=== PATIENT | male | born 1950 | race Two or more races ===

== ENCOUNTER 2025-07-21 11:29 | Inpatient (IN) | payer OTHER ==
[~2025-07-21] VITALS: Ht 190.5 cm; Wt 86.2 kg
[2025-07-21] MEDS ORDERED: CANDESARTAN CIL16 MG PO (13:21)
[2025-07-21] MEDS ORDERED: HORIZANT300 MG PO (13:21)
[2025-07-21] MEDS ORDERED: AMLODIPINE-OLM1 EACH (13:23)
[2025-07-21] MEDS ORDERED: TAMSULOSIN HCL0.4 MG PO (13:23)
[2025-07-21] MEDS ORDERED: FARXIGA10 MG PO (13:23)
[2025-07-21] MEDS ORDERED: FENOFIBRATE48 MG (13:24)
[2025-07-21] MEDS ORDERED: ADULT LOW DOSE81 M1 PO (13:25)
[2025-07-21] MEDS ORDERED: PANTOPRAZOLE SO40 M2 PO (13:26)
--- NOTE | 2025-07-21 13:27 | NUR ---
PACIENTE ALERTA Y ORIENTADA X3 REFIERE DIFICULTAD PARA ORINAR. SE MIDE S/V Y SE UBICA PARA SER EVALUADO.
[2025-07-21] MEDS ORDERED: CEFTRIAXONE SODIUM 1,000 MG VIAL IM ONE (15:30)
[2025-07-21] MEDS ORDERED: ACETAMINOPHEN 500 MG GEL..CAP PO ONE (15:30)
[2025-07-21 16:39] LABS: BASO % 0.5 % (0.1-1.2); EOS # 0.46 (0.04-0.54); EOS % 4.4 % (0.7-7.0); LYMPH # 2.22 (1.18-3.74); LYMPH % 21.4 % (19.3-53.1); MEAN PLATELET VOLUME 11.40 fl (9.4-12.4); MONO # 0.93 (0.24-0.82); MONO % 9.0 % (4.7-12.5); NEUT # 6.70 (1.56-6.13); NEUT % 64.5 % (34.0-71.1); RED CELL DISTRIBUTION WIDTH 12.8 % (11.6-14.4)
[2025-07-21 17:10] LABS: URINE BILIRRUBIN Negative (NEGATIVE); URINE BLOOD Small; URINE COLOR Dark Yellow; URINE KETONE Trace (NEGATIVE); URINE LEUKOCYTE Small; URINE NITRATE Positive; URINE UROBILINOGEN 1.0 E.U./dl
[2025-07-21 17:14] LABS: URINE BACTERIA 858.9 uL (0.0-1933); URINE EPITHELIAL CELLS 14.4 uL (0.0-38.8); URINE RBC 55.2 uL (0.0-20.8); URINE WBC 219.5 uL (0.0-23.2)
[2025-07-21 17:18] LABS: ALT/SGPT 31.0 U/L (12-78); AST/SGOT 19.0 U/L (15-37); BILIRUBIN TOTAL 0.33 mg/dL (0.3-1.2); BUN CREA RATIO 20.0 (7.0-25.0); CREATININE SERUM 1.34 mg/dL (0.70-1.30); GFR 52.11; GLOBULINA 4.2 G/DL (2.4-3.5); GLUCOSE FASTING 101.0 mg/dL (65-100); OSMOLALITY SERUM 287.0 MOSM/KG (275-295)
[2025-07-21 17:41] LABS: URINE CAST 1.27 uL (0.0-1.40); URINE GLUCOSE >=1000 MG/DL (NEGATIVE); URINE PROTEIN 100 (NEGATIVE)
[2025-07-21 17:42] LABS: TYPE CELLS SQUAMOUS; URINE APPEARANCE CLEAR
[2025-07-21] MEDS ORDERED: KETOROLAC TROMETHAMINE 30 MG VIAL IV ONE (18:45)
[2025-07-21] MEDS ORDERED: TAMSULOSIN HCL 0.4 MG CAP PO ONE (18:45)
[2025-07-21] MEDS ORDERED: 0.9 % SODIUM CHLORIDE 1,000 ML IV ONE (18:45)
[2025-07-21] MEDS ORDERED: 0.9 % SODIUM CHLORIDE 1,000 ML IV SCH (21:00)
[2025-07-21] MEDS ORDERED: CIPROFLOXACIN IN 5 % DEXTROSE 200 ML IV SCH (21:04)
[2025-07-21] MEDS ORDERED: TAMSULOSIN HCL 0.4 MG CAP PO SCH (21:04)
[2025-07-21] MEDS ORDERED: AMLODIPINE BESYLATE 2.5 MG TABLET PO SCH (21:05)
[2025-07-21] MEDS ORDERED: ACETAMINOPHEN 500 MG GEL..CAP PO PRN (21:15)
[2025-07-21] MEDS ORDERED: INSULIN LISPRO 1,000 UNIT/10 ML UNITS SUBCUTANEO PRN (21:15)
[2025-07-21] MEDS ORDERED: DEXTROSE 50 % IN WATER 0.5 G/ML DISP.SYRIN IV PRN (21:15)
[2025-07-21] MEDS ORDERED: ONDANSETRON HCL 4 MG in 0.9 % SODIUM CHLORIDE 50 ML IV PRN (21:15)
--- NOTE | 2025-07-21 21:48 | NUR ---
SE ORIENTA PACIENTE ACERCA DE MEDICAMENTOS Y PROCESO DE COLECCION DE MUESTRAS. PACIENTE REFIERE ENTENDER Y ACEPTAR. SE EJECUTAN ORDENES MEDICAS BAJO MEDIDAS ASEPTICAS.
[2025-07-22] MEDS ORDERED: FINASTERIDE 5 MG TABLET PO SCH (09:00)
[2025-07-22] MEDS ORDERED: FAMOTIDINE/PF 20 MG in 0.9 % SODIUM CHLORIDE 8 ML IV PUSH SCH (09:00)
[2025-07-22] MEDS ORDERED: CANDESARTAN CILEXETIL 16 MG TABLET PO SCH (09:00)
[2025-07-22 11:28] LABS: INR 1.12
[2025-07-22 18:35] VITALS: BP 147/73; O2SAT 97
[2025-07-23] VITALS: BP 116/71; O2SAT 96
[2025-07-23 06:06] LABS: BASO % 0.5 % (0.1-1.2); EOS # 0.55 (0.04-0.54); EOS % 5.6 % (0.7-7.0); LYMPH # 2.21 (1.18-3.74); LYMPH % 22.7 % (19.3-53.1); MEAN PLATELET VOLUME 11.40 fl (9.4-12.4); MONO # 0.89 (0.24-0.82); MONO % 9.1 % (4.7-12.5); NEUT # 6.00 (1.56-6.13); NEUT % 61.7 % (34.0-71.1); RED CELL DISTRIBUTION WIDTH 12.3 % (11.6-14.4)
[2025-07-23 06:43] LABS: ALT/SGPT 29.0 U/L (12-78); AST/SGOT 18.0 U/L (15-37); BILIRUBIN TOTAL 0.39 mg/dL (0.3-1.2); BUN CREA RATIO 17.0 (7.0-25.0); CREATININE SERUM 1.14 mg/dL (0.70-1.30); GFR 62.79; GLOBULINA 3.6 G/DL (2.4-3.5); GLUCOSE FASTING 126.0 mg/dL (65-100); OSMOLALITY SERUM 285.0 MOSM/KG (275-295)
[2025-07-23] MEDS ORDERED: RINGERS SOLUTION,LACTATED 1,000 ML IV SCH (08:45)
[2025-07-23 08:59] VITALS: BP 150/80; O2SAT 96
[2025-07-23] MEDS ORDERED: GABAPENTIN 400 MG CAPSULE PO SCH (09:00)
[2025-07-23] MEDS ORDERED: ENOXAPARIN SODIUM 40 MG/0.4 ML SYRINGE SUBCUTANEO SCH (17:00)
[2025-07-23] MEDS ORDERED: AMPICILLIN SODIUM/SULBACTAM NA 3,000 MG VIAL IV SCH (18:00)
[2025-07-23 19:22] VITALS: BP 160/79; O2SAT 97
[2025-07-24 01:05] VITALS: BP 141/71; O2SAT 98
[2025-07-24 06:49] LABS: URINE APPEARANCE Cloudy; URINE BACTERIA 1740.0 uL (0.0-1933); URINE BILIRRUBIN Negative (NEGATIVE); URINE BLOOD Large; URINE CAST 7.50 uL (0.0-1.40); URINE COLOR Yellow; URINE EPITHELIAL CELLS 10.5 uL (0.0-38.8); URINE GLUCOSE Negative (NEGATIVE); URINE KETONE Negative (NEGATIVE); URINE LEUKOCYTE Large; URINE NITRATE Negative; URINE PROTEIN 30 (NEGATIVE); URINE RBC 303.7 uL (0.0-20.8); URINE UROBILINOGEN 0.2 E.U./dl; URINE WBC 610.0 uL (0.0-23.2)
[2025-07-24] MEDS ORDERED: ASPIRIN 81 MG TAB.CHEW PO SCH (09:00)
[2025-07-24 09:55] VITALS: BP 166/80; O2SAT 96
[2025-07-24] MEDS ORDERED: FLOMAX 0.4 MG PO (13:03)
[2025-07-24] MEDS ORDERED: NORVASC2.5 M1 PO (13:04)
[2025-07-24] MEDS ORDERED: ATACAND16 MG PO (13:04)
[2025-07-24] MEDS ORDERED: FAMOTIDINE20 MG PO (13:05)
[2025-07-24] MEDS ORDERED: NeuRONTin 400MG CAPS PO (13:05)
[2025-07-24] MEDS ORDERED: ADULT LOW DOSE81 M1 PO (13:05)
[2025-07-24] MEDS ORDERED: ADULT ASPIRIN81 MG PO (13:05)
[2025-07-24] MEDS ORDERED: FINASTERIDE5 MG PO (13:06)
[2025-07-24] MEDS ORDERED: AMOX-CLAV 875-1 EACH PO (13:07)
== END 2025-07-24 15:07 | disposition home or self-care (01) | DRG 690 ==
LOC: ER 11:29 → MEDI 22:29 → SEC-K 22:29 → MEDI 07-22 13:09
PROVIDERS: Internal Medicine Infectious Disease; ADMIT Internal Medicine; ATTEND Internal Medicine
PROC: BW21ZZZ Computerized Tomography (CT Scan) of Abdomen and Pelvis (ICD-10-PCS; principal; 2025-07-21)
DX: N39.0 Urinary tract infection, site not specified (principal); N17.8 Other acute kidney failure; N41.0 Acute prostatitis; N32.0 Bladder-neck obstruction; I12.9 Hypertensive chronic kidney disease with stage 1 through stage 4 chronic kidney disease, or unspecified chronic kidney disease; E11.22 Type 2 diabetes mellitus with diabetic chronic kidney disease; N18.2 Chronic kidney disease, stage 2 (mild); Z79.4 Long term (current) use of insulin